=== PATIENT | female | born 1985 | race Caucasian/White ===

== ENCOUNTER → 2019-03-04 10:20 | Emergency (ER) | payer SELFPAY | END | disposition home or self-care (01) | LOC: OHCORT 10:20 | DX: Z02.1 Encounter for pre-employment examination (principal) ==

== ENCOUNTER 2019-04-06 12:04 | Emergency (ER) | payer SELFPAY ==
[2019-04-06 12:22] VITALS: BP 138/84
--- NOTE | 2019-04-06 13:13 | UC ---
UC General HPI - HPI Summary HPI Summary: Here with Mother - feels like 4 days ago she tweaked her low back. Pain on both sides, no lower left is what is causing her discomfort. Right leg shooting pain initially but has since resolved. No numbness or tingling down either ext. No loss in bowel or bladder. No changes in urinary habits. Urine output is down. No fever. No abdominal pain. Had a GI bug for 24 hours about a week ago. No back issues in the past. Meds; reviewed - History of Current Complaint Chief Complaint: UCBackPain Stated Complaint: BACK PAIN Time Seen by Provider: 04/06/19 12:57 Hx Last Menstrual Period: Mar 18 Pain Intensity: 7 - Allergy/Home Medications Allergies/Adverse Reactions: Allergies Allergy/AdvReac Type Severity Reaction Status Date / Time No Known Allergies Allergy Verified 04/06/19 12:22 PMH/Surg Hx/FS Hx/Imm Hx Previously Healthy: Yes - Surgical History Surgical History: None - Social History Alcohol Use: Weekly Substance Use Type: None Smoking Status (MU): Never Smoked Tobacco Review of Systems All Other Systems Reviewed And Are Negative: Yes Musculoskeletal: Positive: Decreased ROM Physical Exam Triage Information Reviewed: Yes Appearance: Well-Appearing Vital Signs: Initial Vital Signs Temp 98.4 F 04/06/19 12:16 Pulse 97 04/06/19 12:16 Resp 18 04/06/19 12:16 BP 138/84 04/06/19 12:16 Pulse Ox 98 04/06/19 12:16 Vital Signs Reviewed: Yes Abdomen Description: Positive: Nontender, Soft Bowel Sounds: Positive: Present Musculoskeletal: Positive: ROM Limited @ - with rotation. Pain over paraspinal muscles on left side. Normal straight leg raise. Course/Dx - Course Course Of Treatment: This is a 33 yr old with low back pain U/A: ketones, no signs of infection Low back pain/strain/spasm No insurance, declined naproxen Plan Recommend ibuprofen 800 mg every 8 hours as needed for pain -take with food Then cut back on dose amount once pain is improving Muscle relaxer to take as needed as prescribed Recommend gentle back stretches and exercises Can use heat and cold - alternating to the area If symptoms persist or worsen recommend follow up with PCP or return to urgent care - Diagnoses Provider Diagnosis: Low back strain Discharge ED - Sign-Out/Discharge Documenting (check all that apply): Patient Departure All imaging exams completed and their final reports reviewed: No Studies - Discharge Plan Condition: Good Disposition: HOME Prescriptions: Cyclobenzaprine TAB* [Flexeril 10 MG TAB*] 10 mg PO TID PRN #30 tab PRN Reason: Spasms Patient Education Materials: Acute Low Back Pain (ED), Muscle Spasm (ED), Lower Back Exercises (ED) Forms: *Work Release Referrals: Jeimy Park MD [Primary Care Provider] - Additional Instructions: Recommend ibuprofen 800 mg every 8 hours as needed for pain -take with food Then cut back on dose amount once pain is improving Muscle relaxer to take as needed as prescribed Recommend gentle back stretches and exercises Can use heat and cold - alternating to the area If symptoms persist or worsen recommend follow up with PCP or return to urgent care - Billing Disposition and Condition Condition: GOOD Disposition: Home
== END 2019-04-06 13:21 | disposition home or self-care (01) ==
LOC: UCCORT 12:04
DX: S39.012A Strain of muscle, fascia and tendon of lower back, initial encounter (principal); X50.9XXA Other and unspecified overexertion or strenuous movements or postures, initial encounter; Y92.9 Unspecified place or not applicable
CPT/HCPCS: 81003; 84702; 99212; G0463